=== PATIENT | female | born 1955 | race Caucasian/White ===

== ENCOUNTER → 2020-08-09 | Outpatient (CLI) | payer MEDICARE ==
[~2020-08-09] MED LIST: ATIVAN1 MG PO; CALCIUM CIT 311 EAC1 PO; CIPRO500 MG PO; DEXILANT60 MG PO; ENDOCET 10-3251 EACH PO; FLAGYL500 MG PO; FLUOXETINE HCL10 M1 PO; GABAPENTIN600 MG PO; HYDROCORTISONE30 G2 TD; METHOCARBAMOL500 MG PO; OMNICEF 300 MG300 MG PO; ONDANSETRON HCL4 MG PO; OXYBUTYNIN CHLOR5 MG PO; PROAIR DIGIHAL90 MCG INH; ZOCOR40 MG PO
[2020-08-09 14:01] LABS: RED BLOOD COUNT 4.34 M/UL (4.00-5.10); WHITE BLOOD COUNT 8.9 K/UL (4.5-11.0)
== END ==
LOC: OPSV 13:34
PROVIDERS: Internal Medicine Gastroenterology
DX: E83.119 Hemochromatosis, unspecified (principal)
CPT/HCPCS: 82728; 85027

== ENCOUNTER → 2020-08-16 | Outpatient (CLI) | payer MEDICARE | LOC: OPSV 11:46 | DX: E83.119 Hemochromatosis, unspecified (principal) | CPT/HCPCS: 99195 ==

== ENCOUNTER → 2020-11-14 | Outpatient (CLI) | payer MEDICARE, OTHER | LOC: OPSV 10:00 | DX: E83.119 Hemochromatosis, unspecified (principal) | CPT/HCPCS: 36415; 82728; 85018; 99195 ==

== ENCOUNTER → 2021-02-17 | Outpatient (CLI) | payer MEDICARE, OTHER | LOC: OPSV 09:50 | DX: E83.119 Hemochromatosis, unspecified (principal) | CPT/HCPCS: 36415; 82728; 85018; 99195 ==

== ENCOUNTER → 2021-05-19 | Outpatient (CLI) | payer MEDICARE | LOC: OPSV 09:58 | DX: E83.119 Hemochromatosis, unspecified (principal) | CPT/HCPCS: 36415; 82728; 85018; 99195 ==

== ENCOUNTER → 2021-08-21 | Outpatient (CLI) | payer MEDICARE, OTHER | LOC: OPSV 08-18 10:00 | DX: E83.119 Hemochromatosis, unspecified (principal) | CPT/HCPCS: 36415; 82728; 85018; 99195 ==

== ENCOUNTER → 2021-12-08 | Outpatient (CLI) | payer MEDICARE | LOC: OPSV 11-17 11:00 | DX: E83.110 Hereditary hemochromatosis (principal) | CPT/HCPCS: 36415; 82728; 85018; 99195 ==

== ENCOUNTER → 2022-04-10 | Outpatient (CLI) | payer MEDICARE | LOC: OPSV 10:37 | DX: E83.110 Hereditary hemochromatosis (principal) | CPT/HCPCS: 36415; 82728; 85018; 99195 ==